=== PATIENT | female | born 1950 | race Caucasian/White ===

== ENCOUNTER 2018-10-02 22:15 | Emergency (ER) | payer MEDICARE, OTHER ==
[~2018-10-02] VITALS: Ht 162.6 cm; Wt 63.0 kg
[2018-10-02 22:17] VITALS: BP 131/79
--- NOTE | 2018-10-02 22:29 | NUR ---
PT TRIPPPED ON STEP AT HOME AND FELL 1 HOUR AGO, LAC ON ROGHT FOREHEAD, DENIES LOC/MIDLINE NECK/BACK PAIN/CONFUSION OR VISION CHANGES, BLOOD THINNERS. PT RESTING ON GOEN, PROVDED PT WITH GOWN AND WARM BLANKET, CALL LIGHT WITHIN REACH. AWAITING PA FOR EVAL AND ORDERS
[2018-10-02] MEDS ORDERED: HYDR1POW19 PO (22:32)
[2018-10-02] MEDS ORDERED: L.E.T SOLUTION TP ONE ×2 (22:38→23:00)
[2018-10-02] MEDS ORDERED: LIDOCAINE-MPF 1%, 2ML ONE (22:45)
[2018-10-02] MEDS ORDERED: LIDOCAINE-MPF 1%, 5ML INFIL ONE (23:00)
--- NOTE | 2018-10-02 23:18 | NUR ---
PA AT BEDSIDE FOR SUTURES
[2018-10-02] MEDS ORDERED: BACITRACIN ZINC OINT 500U/GM, 0.9 GM ONE (23:33)
== END 2018-10-02 23:41 | disposition home or self-care (01) ==
LOC: ED 23:35
DX: S01.81XA Laceration without foreign body of other part of head, initial encounter (principal); X58.XXXA Exposure to other specified factors, initial encounter; Y93.89 Activity, other specified; Y92.009 Unspecified place in unspecified non-institutional (private) residence as the place of occurrence of the external cause; Y99.8 Other external cause status
CPT/HCPCS: 12052; 99284